=== PATIENT | female | born 1955 | race Caucasian/White ===

== ENCOUNTER 2016-12-21 09:55 | Emergency (ER) | payer OTHER ==
[~2016-12-21] VITALS: Ht 170.2 cm; Wt 109.5 kg
[2016-12-21] MEDS ORDERED: MAGN400C2 PO (10:08)
[2016-12-21] MEDS ORDERED: FLEC50TA PO (10:08)
[2016-12-21] MEDS ORDERED: CART240C3 PO (10:08)
[2016-12-21] MEDS ORDERED: ATOR1TAB21 PO (10:08)
[2016-12-21] MEDS ORDERED: PROL60SO SC (10:19)
[2016-12-21] MEDS ORDERED: CALCCHW3 PO (10:19)
[2016-12-21] MEDS ORDERED: ASPI81TA85 PO (10:19)
[2016-12-21] MEDS ORDERED: CRAN400T3 PO (10:19)
[2016-12-21] MEDS ORDERED: VITA100T5 PO (10:19)
[2016-12-21] MEDS ORDERED: RANI15ELUD PO (10:19)
[2016-12-21] MEDS ORDERED: PANT40TA2 PO (10:19)
[2016-12-21] MEDS ORDERED: RANI300C PO (10:19)
[2016-12-21] MEDS ORDERED: ASPIRIN 81 MG CHEW TABLET PO ONE (10:45)
[2016-12-21] MEDS ORDERED: fentaNYL 100 MCG/2 ML INJECTION (J3010) IV ONE (10:45)
--- NOTE | 2016-12-21 11:04 | REP ---
Clinical: Chest pain . Comparison: None . Findings: The mediastinum and cardiac silhouette are stable and within normal limits for portable technique. The lung ferrer are clear without acute consolidation, effusion, or pneumothorax. Skeletal structures are intact. Impression: No acute cardiopulmonary process appreciated. Signed by Parish Padilla MD 12/21/2016 10:54 A
[2016-12-21 11:16] LABS: BASO % 0.3 % (0.0-1.0); EOS % 0.7 % (0.0-3.0); LARGE UNSTAINED CELL # 0.1 K/mm3 (0.0-0.4); LARGE UNSTAINED CELL % 0.9 % (0.0-4.0); LYMPH # 0.8 K/mm3 (1.5-4.5); MEAN CORPUSCULAR HEMOGLOBIN 32.6 pg (27.0-33.0); MEAN CORPUSCULAR VOLUME 95.7 fl (80.0-96.0); MONO # 0.2 K/mm3 (0.0-0.8); MONO % 2.6 % (0.0-5.0); NEUTROPHILS # 6.4 K/mm3 (1.8-7.7); NEUTROPHILS % 85.5 % (36.0-66.0); PLATELET COUNT, AUTOMATED 189 k/mm3 (150-450); RED CELL DISTRIBUTION WIDTH 12.9 % (11.5-14.5); WHITE BLOOD COUNT 7.4 K/mm3 (4.0-10.0)
[2016-12-21 11:39] LABS: ALBUMIN 3.7 GM/DL (3.2-5.2); ALKALINE PHOSPHATASE 57 U/L (45-117); ALT/SGPT 30 U/L (12-78); ANION GAP 6 MEQ/L (8-16); AST/SGOT 19 U/L (15-37); BILIRUBIN,DIRECT 0.1 MG/DL (0.0-0.2); BILIRUBIN,TOTAL 0.4 MG/DL (0.2-1.0); BLOOD UREA NITROGEN 16 MG/DL (7-18); CALCIUM LEVEL 9.1 MG/DL (8.8-10.2); CARBON DIOXIDE LEVEL 28 MEQ/L (21-32); CHLORIDE LEVEL 108 MEQ/L (98-107); CREATININE FOR GFR 0.78 MG/DL (0.55-1.02); GLOMERULAR FILTRATION RATE > 60.0 (>45); GLUCOSE, FASTING 110 MG/DL (80-110); POTASSIUM SERUM 3.7 MEQ/L (3.5-5.1); SODIUM LEVEL 142 MEQ/L (136-145); TOTAL PROTEIN 7.4 GM/DL (6.4-8.2)
[2016-12-21] MEDS ORDERED: ISOVUE-370 76% 100ML VIAL (Q9967) As Ordered ONE ×2 (11:40→12:03)
--- NOTE | 2016-12-21 12:44 | REP ---
Clinical: Radiating back pain evaluate for possible aortic aneurysm. Technique: Axial contrast enhanced images from the thoracic inlet to the pubic symphysis using 100 ml Isovue 370 intravenous contrast material with imaging in the arterial phase. Coronal and sagittal re-formations obtained. Findings: Evaluation of the aorta demonstrates mild aneurysmal dilatation to the ascending thoracic aorta measuring 4.2 cm maximal diameter. The descending thoracic aorta, abdominal aorta, branch vessels and bifurcation to iliac arteries appear normal and without aneurysmal dilatation or atherosclerotic changes. There is no evidence for dissection. The heart and pericardium are normal. The pulmonary vasculature is unremarkable and without pulmonary embolus or evidence for pulmonary hypertension. Chest: The lung ferrer demonstrate minimal age-related bibasilar dependent and chronic fibroatelectatic changes. No consolidation, nodule or mass lesion. No pleural effusion/reaction or pneumothorax. Tracheobronchial tree is patent. No adenopathy. Abdomen/pelvis: Liver, spleen, pancreas, gallbladder, bilateral adrenal glands and kidneys are normal the enteric system is without obstruction or acute inflammatory process. Pelvis demonstrates collapsed bladder. Uterus appears mildly prominent and may represent underlying myomatous changes. No pelvic fluid or ascites. No free air. No retroperitoneal or intraperitoneal adenopathy. No obvious abdominal pelvic mass lesion. 1 cm fat containing periumbilical hernia identified. Evidence for left hip replacement. Musculoskeletal structures demonstrate degenerative changes without focal osseous abnormality. Impression: 1. Mild aneurysmal dilatation to the ascending thoracic aorta measuring 4.2 cm maximal diameter. The remainder of the aorta through bifurcation to iliac arteries and branch vessels appear normal and without further aneurysm or evidence for dissection. 2. Chest demonstrates minimal chronic basilar changes without acute mediastinal or pleuroparenchymal process. 3. No acute abdominopelvic pathology appreciated. Signed by Parish Padilla MD 12/21/2016 12:34 P
[2016-12-21] MEDS ORDERED: diphenhydrAMINE INJ 50MG/ML VIAL (J1200) IV ONE (14:30)
[2016-12-21 15:43] VITALS: BP 121/58
--- NOTE | 2016-12-22 07:26 | ECGEPIP ---
Stationary ECG Study [facility] - ED Test Date: 2016-12-21 Pat Name: COURTNEY PEREZ Department: Room: - Gender: F Office Workforce Planner: adrien : 1955 Requested By: JESS Pickett Order Number: [id number] Reading MD: Lucrecia Roberts Measurements Intervals [place] Rate: 44 P: 50 WV: 187 QRS: 29 QRSD: 110 T: 57 QT: 490 QTc: 422 Interpretive Statements SINUS BRADYCARDIA NSTTW ABNORMALITY IVCD NO PRIOR FOR COMPARISON Electronically Signed On 12-22-2016 7:26:18 EDT by Lucrecia Roberts
--- NOTE | 2016-12-22 07:30 | ECGEPIP ---
Stationary ECG Study [facility] - ED Test Date: 2016-12-21 Pat Name: COURTNEY PEREZ Department: Room: - Gender: F Automotive Mechanical Engineer: ct : 1955 Requested By: JESS Pickett Order Number: [id number] Reading MD: Lucrecia Roberts Measurements Intervals [place] Rate: 53 P: 17 WA: 155 QRS: 38 QRSD: 104 T: 66 QT: 453 QTc: 429 Interpretive Statements SINUS BRADYCARDIA NSTTW ABNORMALITY INCREASED RATE 12/21/16 Electronically Signed On 12-22-2016 7:29:49 EDT by Lucrecia Roberts
== END 2016-12-21 15:57 | disposition home or self-care (01) ==
LOC: M ED 09:55
DX: M54.9 Dorsalgia, unspecified (principal); I71.2 Thoracic aortic aneurysm, without rupture; R00.1 Bradycardia, unspecified; I10 Essential (primary) hypertension; I48.91 Unspecified atrial fibrillation; Z79.899 Other long term (current) drug therapy; Z79.82 Long term (current) use of aspirin
CPT/HCPCS: 36415; 71010; 71275; 74177; 80048; 80076; 82550; 82553; 83880; 84484; 85025; 85730; 93005; 93041; 94760; 96374; 96375; 99285; J1200; J3010; Q9967